=== PATIENT | male | born 1995 | race Caucasian/White ===

== ENCOUNTER 2019-01-28 16:18 | Emergency (ER) | payer SELFPAY ==
--- NOTE | 2019-01-28 17:29 | RAD ---
RIGHT FOOT: ONE VIEW 01/28/19 INDICATIONS: Postop evaluation. 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 Pins transfix the DIP and PI P joints of the second and third toe. No other osseous abnormality. POS: [facility]
== END 2019-01-28 18:46 | disposition home or self-care (01) ==
LOC: ERS 16:18
DX: G89.18 Other acute postprocedural pain (principal); M79.671 Pain in right foot; F17.210 Nicotine dependence, cigarettes, uncomplicated